=== PATIENT | female | born 2000 | race American Indian/Alaskan Native ===

== ENCOUNTER 2020-08-01 10:49 | Inpatient (IN) | payer BC, MEDICAID ==
--- NOTE | 2020-08-01 14:24 | Ultrasound Report ---
US OB BPP wo non-stress, US OB limited INDICATION / CLINICAL INFORMATION: decel in office. COMPARISON: None available. FINDINGS: BREATHING MOVEMENT = 2 GROSS BODY MOVEMENT = 0 TONE = 2 QUALITATIVE AMNIOTIC FLUID VOLUME = 2 TOTAL BIOPHYSICAL SCORE = 6/8 AMNIOTIC FLUID INDEX (cm) = 3.5; largest pocket of fluid measured 2.1 cm in the left upper quadrant. HEART RATE (beats per minute): 132 IMPRESSION: 1. biophysical profile = 07/23 . Only 2 episodes of body/limb movements identified within 30 tiffanie david. 2. Findings consistent with oligohydramnios with MAHSA measuring 3.5 cm. Signer Name: Tony Jackson MD Signed: 08/01/2020 2:19 PM Workstation Name: [id number]
[2020-08-01] MEDS ORDERED: CARBOPROST TROMETHAMINE 250 MCG/1 ML INJ IM PRN (14:43)
[2020-08-01] MEDS ORDERED: OXYTOCIN 10 UNIT/1 ML INJ IM PRN (14:43)
[2020-08-01] MEDS ORDERED: LOPERAMIDE 2 MG CAP PO PRN (14:43)
[2020-08-01] MEDS ORDERED: miSOPROStol 200 MCG TAB PR PRN (14:43)
[2020-08-01] MEDS ORDERED: METHYLERGONOVINE MALEATE 0.2 MG/ML VIAL IM PRN (14:43)
[2020-08-01] MEDS ORDERED: MINERAL OIL 30 ML ORAL LIQD PO PRN ×2 (14:43→19:23)
[2020-08-01] MEDS ORDERED: ePHEDrine SULFATE 50 MG/1 ML INJ IV PRN (14:43)
[2020-08-01] MEDS ORDERED: LIDOCAINE (2%) 20 MG/1 ML VIAL 20 ML MDV INFILTRATI ONE ×2 (14:43→19:23)
[2020-08-01] MEDS ORDERED: OXYTOCIN DRIP 30 UNITS/500 ML BAG IV SCH ×3 (15:00→20:00)
--- NOTE | 2020-08-01 15:14 | History and Physical Report ---
History of Present Illness Date of examination: 08/01/20 Date of admission: 08/01/20 14:43 Chief complaint: Induction of labor History of present illness: 20yo G1 at 40.1 weeks with non-reassuring testing-postdates for IOL. [place] 07/31/20 by [facility] consistent with second trimester US. 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 PNC at [facility], GBS negative per PNR Past History Past Medical History: no pertinent history Past Surgical History: no surgical history Family/Genetic History: other (see OB Problem list in HPI) Social history: no significant social history - Obstetrical History Expected Date of Delivery: 07/31/20 Actual Gestation: 40 Week(s) 1 Day(s) : 1 Medications and Allergies Allergies Allergy/AdvReac Type Severity Reaction Status Date / Time No Known Allergies Allergy Verified 08/01/20 11:16 Active Meds: Active Medications Carboprost Tromethamine (Carboprost Tromethamine 250 Mcg/1 Ml Inj) 250 mcg IM ONCE PRN PRN Reason: Uterine Bleeding Ephedrine Sulfate (Ephedrine Sulfate 50 Mg/1 Ml Inj) 10 mg IV Q2M PRN PRN Reason: Hypotension Oxytocin/Sodium Chloride (Pitocin/Ns 30 Unit/500ml) 30 units in 500 mls @ 2 mls/hr IV TITR HERON; Protocol Lactated Ringer's (Lactated Ringers) 1,000 mls @ 125 mls/hr IV DIRECT HERON Oxytocin/Sodium Chloride (Pitocin/Ns 30 Unit/500ml) 30 units in 500 mls @ 40 mls/hr IV TITR HERON; Protocol Loperamide HCl (Loperamide 2 Mg Cap) 2 mg PO ONCE PRN PRN Reason: give with Hemabate Methylergonovine Maleate (Methylergonovine Maleate 0.2 Mg/Ml Vial) 0.2 mg IM ONCE PRN PRN Reason: Uterine Bleeding Mineral Oil (Mineral Oil 30 Ml Oral Liqd) 30 ml PO QHS PRN PRN Reason: Constipation Misoprostol (Misoprostol 200 Mcg Tab) 800 mcg WA ONCE PRN PRN Reason: Uterine Bleeding Oxytocin (Oxytocin 10 Unit/1 Ml Inj) 10 unit IM ONCE PRN PRN Reason: Uterine Bleeding Terbutaline Sulfate (Terbutaline 1 Mg/1 Ml Inj) 0.25 mg SUB-Q ONCE PRN PRN Reason: Hyperstimulation/Hypertonicity Review of Systems All systems: negative - Vital Signs Vital signs: Vital Signs Pulse BP 85 125/88 08/01/20 11:16 08/01/20 11:16 Temp Pulse Resp BP Pulse Ox 97.9 F 109 H 20 135/91 98 08/01/20 11:17 08/01/20 15:08 08/01/20 11:17 08/01/20 14:50 08/01/20 15:08 - Physical Exam Breasts: Positive: deferred Cardiovascular: Regular rate Lungs: Positive: Clear to auscultation Abdomen: Positive: normal appearance, normal bowel sounds Genitourinary (Female): Positive: normal external genitalia, normal perenium Vagina: Positive: normal moisture Deep Tendon Reflex Grade: Normal +2 - Obstetrical FHR: category 1 Cervical Dilatation: 2 Cervical Effacement Percentage: 40 station: -3 Uterine Contraction Frequency (min): 4 Uterine Contraction Intensity: Moderate Results Result Diagrams: 08/01/20 14:32 All other labs normal. Assessment and Plan Admission Post Dates Non-Reassuring testing Plans: obtain PNR in AM GBS coverage as needed cervidil CFM Pain meds prn Maternal/ well being reassuring overall. Kalyani Abernathy MD
[2020-08-01 15:16] LABS: Hematocrit 33.9 % (30.3-42.9); Hemoglobin 10.6 gm/dl (10.1-14.3); Mean Corpuscular HGB Conc 31 % (30-34); Mean Corpuscular Volume 71 fl (79-97); Platelet Count 169 K/mm3 (140-440); Red Blood Count 4.76 M/mm3 (3.65-5.03); Red Cell Distribution Width 21.4 % (13.2-15.2)
[2020-08-01] MEDS ORDERED: NALOXONE 2 MG/2 ML INJ IV PRN (17:50)
--- NOTE | 2020-08-01 17:50 | Anesthesia Consultation ---
Anesthesia Consult and Med Hx Date of service: 08/01/20 - Airway Anesthetic Teeth Evaluation: Good ROM Head & Neck: Adequate Mental/Hyoid Distance: Adequate Mallampati Class: Class II Intubation Access Assessment: Good - Pulmonary Exam CTA: Yes - Cardiac Exam Cardiac Exam: RRR - Pre-Operative Health Status ASA Pre-Surgery Classification: ASA2 Proposed Anesthetic Plan: Epidural - Pulmonary Hx Smoking: No Hx Asthma: No Hx Respiratory Symptoms: No SOB: No COPD: No Home Oxygen Therapy: No Hx Pneumonia: No Hx Sleep Apnea: No - Cardiovascular System Hx Hypertension: No Hx Coronary Artery Disease: No Hx Heart Attack/AMI: No Hx Angina: No Hx Percutaneous Transluminal Coronary Angioplasty (PTCA): No Hx Cardia Arrhythmia: No Hx Pacemaker: No Hx Internal Defibrillator: No Hx Valvular Heart Disease: No Hx Heart Murmur: No Hx Peripheral Vascular Disease: No - Central Nervous System Hx Neuromuscular Disorder: No Hx Seizures: No CVA: No Hx Back Pain: Yes (History of Scoleosis and bulgind disc.) Hx Psychiatric Problems: No - Gastrointestinal Hx Ulcer: No Hx Gastroesophageal Reflux Disease: Yes - Endocrine Hx Renal Disease: No Hx End Stage Renal Disease: No Hx Cirrhosis: No Hx Liver Disease: No Hx Insulin Dependent Diabetes: No Hx Non-Insulin Dependent Diabetes: No Hx Thyroid Disease: No Hx Hypothyroidism: No Hx Hyperthyroidism: No - Hematic Hx Anemia: Yes Hx Sickle Cell Disease: No - Other Systems Hx Alcohol Use: No Hx Substance Use: No Hx Cancer: No Hx Obesity: Yes
[2020-08-01] MEDS ORDERED: fentaNYL-BUPIV 2 MCG/ML-0.125% 200 MCG/100 ML BAG EPIDURAL SCH (18:00)
[2020-08-01] MEDS ORDERED: AMPICILLIN/NS 2 GM/100 ML 2 GM/100 ML BAG IV ONE (19:23)
[2020-08-01] MEDS ORDERED: DINOPROSTONE 10 MG VAG SUPP VG ONE (19:23)
[2020-08-01] MEDS: LACTATED RINGERS 1,000 ML IV SCH (22:02)
[2020-08-02] MEDS: fentaNYL 100 MCG/2 ML INJ IV PRN ×2 (00:59→03:13)
[2020-08-02] MEDS: LACTATED RINGERS 1,000 ML IV SCH (04:20)
[2020-08-02] MEDS ORDERED: BUTORPHANOL 2 MG/1 ML INJ IV PRN (05:20)
--- NOTE | 2020-08-02 07:01 | Anesthesia Consultation ---
Anesthesia Consult and Med Hx Date of service: 08/02/20 - Airway Anesthetic Teeth Evaluation: Good ROM Head & Neck: Adequate Mental/Hyoid Distance: Adequate Mallampati Class: Class II Intubation Access Assessment: Good - Pulmonary Exam CTA: Yes - Cardiac Exam Cardiac Exam: RRR - Pre-Operative Health Status ASA Pre-Surgery Classification: ASA2 Proposed Anesthetic Plan: Epidural - Pulmonary Hx Smoking: No Hx Asthma: No Hx Respiratory Symptoms: No SOB: No COPD: No Home Oxygen Therapy: No Hx Pneumonia: No Hx Sleep Apnea: No - Cardiovascular System Hx Hypertension: No Hx Coronary Artery Disease: No Hx Heart Attack/AMI: No Hx Angina: No Hx Percutaneous Transluminal Coronary Angioplasty (PTCA): No Hx Cardia Arrhythmia: No Hx Pacemaker: No Hx Internal Defibrillator: No Hx Valvular Heart Disease: No Hx Heart Murmur: No Hx Peripheral Vascular Disease: No - Central Nervous System Hx Neuromuscular Disorder: No Hx Seizures: No CVA: No Hx Back Pain: No Hx Psychiatric Problems: No - Gastrointestinal Hx Ulcer: No Hx Gastroesophageal Reflux Disease: Yes - Endocrine Hx Renal Disease: No Hx End Stage Renal Disease: No Hx Cirrhosis: No Hx Liver Disease: No Hx Insulin Dependent Diabetes: No Hx Non-Insulin Dependent Diabetes: No Hx Thyroid Disease: No Hx Hypothyroidism: No Hx Hyperthyroidism: No - Hematic Hx Anemia: Yes Hx Sickle Cell Disease: No - Other Systems Hx Alcohol Use: No Hx Substance Use: No Hx Cancer: No Hx Obesity: Yes
--- NOTE | 2020-08-02 07:04 | Progress Note ---
Labor Epidural - Labor Epidural Start Time: 06:26 Stop Time: 06:47 Performed by:: MATIAS DODSON Procedure: Patient is requesting a laboring epidural for laboring pain. Patient IDed, H&P reviewed, all questions and concerns were answered, and consent was signed. Timeout was performed at bedside. Patient in sitting position. Sterile prep and drape was performed. [4] ml of 1% lidocaine skin wheal at L[3]- L [4]. 18- gauge Tuohy epidural needle was advanced to loss of resistance with air technique to 6 cm. Negative CSF negative blood via Tuohy needle. #27g Spinal needle clear, free flowing CSF, Pecedex 10 mcg. Epidural catheter advanced to [10] centimeters. [negative] Aspiration [negative] test dose. Sterile dressing applied. Patient tolerated procedure.
[2020-08-02] MEDS: ePHEDrine SULFATE 50 MG/1 ML INJ IV PRN ×2 (07:12→07:19)
[2020-08-02] MEDS: TERBUTALINE 1 MG/1 ML INJ SUB-Q PRN ×2 (07:57→09:38)
[2020-08-02] MEDS ORDERED: LIDOCAINE MPF (2%) 20 MG/1 ML VIAL 5 ML ONE (09:22)
[2020-08-02] MEDS ORDERED: BICITRA ORAL LIQD 30ML ONE (09:32)
[2020-08-02] MEDS ORDERED: FAMOTIDINE 20 MG/2 ML INJ IV ONE ×2 (09:33→09:59)
[2020-08-02] MEDS ORDERED: ceFAZolin/Water 2 GM/20 ML 2 GM/20 ML SYRINGE IV ONE (09:33)
[2020-08-02] MEDS ORDERED: METOCLOPRAMIDE 10 MG/2 ML INJ ONE (09:33)
[2020-08-02] MEDS ORDERED: TERBUTALINE 1 MG/1 ML INJ ONE (09:37)
[2020-08-02] MEDS ORDERED: BICITRA ORAL LIQD 30ML PO ONE (09:59)
[2020-08-02] MEDS ORDERED: METOCLOPRAMIDE 10 MG/2 ML INJ IV ONE (09:59)
[2020-08-02] MEDS ORDERED: ceFAZolin/Water 2 GM/20 ML 2 GM/20 ML SYRINGE IV NR (10:00)
[2020-08-02] MEDS ORDERED: OXYTOCIN DRIP 30 UNITS/500 ML BAG IV SCH ×2 (10:00→13:00)
[2020-08-02] MEDS ORDERED: LACTATED RINGERS 1,000 ML IV SCH (10:00)
[2020-08-02] MEDS ORDERED: ONDANSETRON 4 MG/2 ML INJ ONE ×2 (10:48)
[2020-08-02] MEDS ORDERED: OXYTOCIN 10 UNIT/1 ML INJ ONE (11:22)
[2020-08-02] MEDS ORDERED: miSOPROStol 200 MCG TAB ONE (11:25)
[2020-08-02] MEDS ORDERED: METHYLERGONOVINE MALEATE 0.2 MG/ML VIAL IM ONE (11:25)
[2020-08-02] MEDS ORDERED: CARBOPROST TROMETHAMINE 250 MCG/1 ML INJ IM ONE (11:25)
--- NOTE | 2020-08-02 12:07 | Procedure Note ---
OB Delivery Note - Delivery Date of Delivery: 08/02/20 Surgeon: ENID MOROCHO - Section Preop diagnosis: nonreassuring FHR tracing Postop diagnosis: same section procedure: section, primary low transverse Disposition: PACU Complications: uterine atony Narrative: Please see operative report. - Infant A at 1 minute: 8 at 5 minutes: 9 Infant Gender: Male (3553g (7lb 13oz) @ 11:19 am)
--- NOTE | 2020-08-02 12:08 | Operative Report ---
Operative Report Operative Report: Date of procedure: August 02, 2020 Preoperative diagnosis: 1) IUP at 40w2d 2) Oligohydramnios 3) Nonreassuring f etal status- repetitive late decelerations Postoperative diagnosis: Same 4) Occiput Posterior presentation Procedure: Primary low transverse section Surgeon: Lashaun King M.D. Anesthesia: Regional Findings: 1) Viable male , Apgars 8 and 9, weight 3553g (7 lb 13 oz) in cephalic presentation. Occiput posterior 2) Normal-appearing uterus ovaries and tubes Estimated blood loss: 788 mL IV fluids: 1300 mL Urine output: 75 mL, clear at the end of the procedure Drains: Buchanan to gravity Specimens: None Complications:None. Counts correct x 3 Disposition: Stable to PACU Indication for procedure: Pt is a 20y year old -[place] female primigravida who was admitted for induction of labor secondary to oligohydramnios. She progressed to 8 cm, but began having repetitive late decelerations after each contraction without further cervical change. The decision was made to proceed with delivery. Operation in detail: After the risks, benefits, alternatives and complications were explained to the patient she gave informed consent for the procedure. She was subsequently taken to the operating room where regional anesthesia was noted to be adequate. She was placed in the dorsal supine position with leftward tilt and prepped and draped in a normal sterile fashion. heart tones were noted prior to incision. A timeout was performed. A Pfannenstiel skin incision was made with the knife and carried down to the layer of the fascia with the Bovie. The fascia was incised in the midline and the fascial incision was extended bilaterally with the Bovie. The fascial incision was then stretched. The rectus muscles were then in the midline and partially transected for adequate visualization. The peritoneum was then entered bluntly. The peritoneal incision was extended with good visualization of the bladder. The peritoneal incision was then stretched. An Bandar retractor was placed. The bladder blade was then placed. The vesicouterine peritoneum was grasped with smooth pick ups and incised with Metzenbaum scissors. A bladder flap was then created digitally and the bladder blade was replaced. A transverse incision was made in the lower uterine segment with a knife and extended bilaterally with the bandage scissors. Amniotomy was performed with egress of clear fluid. head delivered with ease, followed by shoulders and body. bulb suctioned at delivery. Cord clamped and cut. handed to NICU staff in attendance. Cord blood was collected. The placenta was then delivered manually. The uterus was then exteriorized and cleared of all clots and debris. The hysterotomy was then reapproximated with 0 Monocryl in a running locked fashion. A second layer of the same suture was used in imbricating fashion. The hysterotomy was inspected and hemostasis was noted. The gutters were irrigated and cleared of all clots and debris. The hysterotomy was again inspected and noted to be hemostatic. Surgicel was placed over the hysterotomy. The uterus was placed back into the peritoneal cavity. The Bandar retractor was removed. The peritoneum was reapproximated with 2-0 Vicryl in a running fashion incorpora ting the rectus muscles. Surgicel was placed over the rectus muscles. The fascia was reapproximated with 0 Vicryl in a running fashion. The subcutaneous tissue was reapproximated with 3-0 Vicryl in a running fashion. The skin was reapproximated with 4-0 Vicryl in a subcuticular fashion. The incision was then covered with steri strips and a pressure dressing. The procedure was then ended. The patient tolerated the procedure well and was taken to the PACU in stable condition. All instrument, lap, and needle counts were correct 3.
--- NOTE | 2020-08-02 12:45 | Anesthesia Day of Surgery ---
Anesthesia Day of Surgery - Day of Surgery Patient Examined: Yes Patient H&P Reviewed: Yes Patient is NPO: Yes Beta Blockers: No Cardiac Clearance: No Pulmonary Clearance: No Hugh's Test: N/A
--- NOTE | 2020-08-02 12:48 | Progress Note ---
Spinal Anesthesia Block - Spinal Anesthesia Block Start Time: 10:40 Stop Time: 10:48 Performed by:: MATIAS DODSON Procedure: Epidural Catheter D/C'd, unable to flush catheter. Patient IDed, H&P reviewed, all questions and concerns were answered, and consent was signed. Timeout was performed at bedside. Patient in sitting position. Sterile prep and drape was performed. [3] ml of 1% lidocaine skin wheal at L[3]- L [4]. Needle introducer advanced. 25 gauge spinal needle advanced. Clear, free flowing CSF. negative blood, negative paresthesia. Spinal dose given. All needles removed. Patient tolerated procedure.
[2020-08-02] MEDS ORDERED: WITCH HAZEL/ GLYCERIN PAD TP PRN (12:50)
[2020-08-02] MEDS ORDERED: NALOXONE 0.4 MG/1 ML INJ IV PRN (12:50)
[2020-08-02] MEDS ORDERED: ONDANSETRON 4 MG/2 ML INJ IV PRN (12:50)
[2020-08-02] MEDS ORDERED: MORPHINE 4 MG/1 ML INJ IV PRN (12:50)
[2020-08-02] MEDS ORDERED: LANOLIN/ZINC/DIMETHICONE (LANSINOH) 7 GM TP PRN (12:50)
[2020-08-02] MEDS ORDERED: MAGNESIUM HYDROXIDE (MOM) ORAL LIQD UDC PO PRN (12:50)
[2020-08-02] MEDS ORDERED: SIMETHICONE 80 MG CHEW TAB PO PRN (12:50)
[2020-08-02] MEDS ORDERED: D5W/LACTATED RINGERS 1,000 ML IV SCH (13:00)
[2020-08-02] MEDS ORDERED: ceFAZolin/NS 1 GM/50 ML 1 GM/50 ML BAG IV SCH (13:00)
[2020-08-02] MEDS: MORPHINE 2 MG/1 ML INJ IV PRN ×2 (13:07→18:29)
[2020-08-02] MEDS: KETOROLAC 30 MG/1 ML INJ IV SCH ×2 (15:05→21:17)
--- NOTE | 2020-08-02 16:04 | Post Anesthesia Evaluation ---
- Post Anesthesia Evaluation Patient Participated: Yes Airway Patent: Yes Stable Respiratory Function: Yes Nausea/Vomiting: No Temp > 96.8F: Yes Pain Manageable: Yes Adequeate Hydration: Yes Anesthesia Complications: No Block Receding Appropriately: Yes Patient on Ventilator: No
[2020-08-02] MEDS ORDERED: LACTATED RINGERS 1000 ML IV SOLN IV SCH (17:53)
[2020-08-02] MEDS: oxyCODONE /ACETAMINOPHEN 5-325MG TAB PO PRN (23:55)
[2020-08-03 00:48] LABS: Hematocrit 27.5 % (30.3-42.9); Hemoglobin 8.4 gm/dl (10.1-14.3)
[2020-08-03] MEDS ORDERED: ceFAZolin/NS 1 GM/50 ML 1 GM/50 ML BAG IV SCH (01:30)
[2020-08-03] MEDS: KETOROLAC 30 MG/1 ML INJ IV SCH (03:59)
[2020-08-03] MEDS: FERROUS SULFATE 325 MG TAB PO SCH (09:57)
[2020-08-03] MEDS: oxyCODONE /ACETAMINOPHEN 5-325MG TAB PO PRN ×2 (09:57→15:53)
--- NOTE | 2020-08-03 11:12 | Progress Note ---
Assessment and Plan A: POD#1 s/p primary section at term Obesity P: Routine postoperative care Begin bowel regimen Subjective - Subjective Date of service: 08/03/20 Principal diagnosis: s/p primary at term Interval history: Pt with no unusual complaints Patient reports: appetite normal, voiding normally, pain well controlled, flatus (minimal ), ambulating normally, no bowel movement : doing well Objective - Vital Signs Latest vital signs: Vital Signs Temp Pulse Resp BP BP Pulse Ox 08/03/20 09:57 18 08/03/20 07:10 97.9 F 91 H 18 127/74 100 08/03/20 05:58 98.0 F 99 H 20 120/80 97 08/03/20 03:59 20 08/02/20 23:55 18 08/02/20 23:32 98.5 F 100 H 20 121/74 96 08/02/20 21:17 20 08/02/20 20:36 98.3 F 98 H 20 135/77 99 08/02/20 16:31 97.6 F 105 H 16 115/65 100 08/02/20 13:40 97.6 F 94 H 17 112/67 98 08/02/20 13:15 97.6 F 87 14 100/61 100 08/02/20 13:00 97.8 F 89 14 116/58 100 08/02/20 12:45 97.8 F 104 H 14 102/55 99 08/02/20 12:30 97.8 F 92 H 14 101/63 99 08/02/20 12:15 97.8 F 91 H 14 116/59 99 08/02/20 12:00 97.8 F 94 H 14 107/61 99 Intake and Output 08/02/20 08/03/20 08/03/20 22:59 06:59 14:59 Intake Total 240 480 Output Total 1900 Balance 240 -1420 Intake: Oral 240 Intake, Free Water 240 240 Output: Urine 1900 Indwelling Catheter 1200 Void 700 Other: Total, Intake Amount 240 Total, Output Amount 500 - Exam Breasts: Present: deferred Abdomen: Present: soft, distention (moderate ) Uterus: Present: fundal height at umbilicus Extremities: Present: edema (trace ) Incision: Present: dressed - Labs Labs: Abnormal lab results 08/03/20 Range/Units 00:21 Hgb 8.4 L (10.1-14.3) gm/dl Hct 27.5 L D (30.3-42.9) %
[2020-08-03] MEDS ORDERED: TETANUS,DIPH,PERTUSS(ACELL) VACCINE 0.5 ML SYRINGE IM ONE (12:28)
[2020-08-03] MEDS ORDERED: MEASLES, MUMPS & RUBELLA 12,500 UNIT/0.5 ML VACCINE SUB-Q ONE (12:28)
[2020-08-03] MEDS: IBUPROFEN 800 MG TAB PO PRN ×2 (12:33→18:11)
[2020-08-03] MEDS: LACTULOSE 20 GM/30 ML ORAL LIQD PO SCH ×2 (18:11→22:41)
[2020-08-04] MEDS: oxyCODONE /ACETAMINOPHEN 5-325MG TAB PO PRN ×2 (01:51→13:07)
[2020-08-04] MEDS: IBUPROFEN 800 MG TAB PO PRN (06:15)
[2020-08-04] MEDS: LACTULOSE 20 GM/30 ML ORAL LIQD PO SCH (06:25)
[2020-08-04 09:09] VITALS: BP 130/80
[2020-08-04] MEDS: FERROUS SULFATE 325 MG TAB PO SCH (09:14)
--- NOTE | 2020-08-04 11:47 | Progress Note ---
Assessment and Plan A: POD#2 s/p primary section at term Obesity P: Routine postoperative care Discharge today and follow up in 2 weeks in the office for an incision check Subjective - Subjective Date of service: 08/04/20 Principal diagnosis: s/p primary at term Interval history: Pt with no unusual complaints. She has had a couple bowel movements and asks to go home today. Patient reports: appetite normal, voiding normally, pain well controlled, flatus, bowel movement, ambulating normally [place]: doing well Objective - Vital Signs Latest vital signs: Vital Signs Temp Pulse Resp BP BP Pulse Ox 08/04/20 08:50 98.0 F 82 18 130/80 97 08/04/20 06:15 20 08/04/20 01:51 20 08/04/20 00:57 98.6 F 87 20 129/73 100 08/03/20 18:11 18 08/03/20 16:45 98.0 F 82 18 121/69 99 08/03/20 15:53 18 08/03/20 12:33 18 Intake and Output 08/03/20 08/04/20 08/04/20 22:59 06:59 14:59 Intake Total 360 240 Balance 360 240 Intake: Oral 240 Intake, Free Water 360 Other: Total, Intake Amount 240 # Voids Void 1 2 - Exam Breasts: Present: deferred Abdomen: Present: soft (mild ) Uterus: Present: fundal height at umbilicus Extremities: Present: normal Incision: Present: dressed
--- NOTE | 2020-08-04 11:47 | Discharge Summary ---
Providers - Providers Date of Admission: 08/01/20 19:23 Date of discharge: 08/04/20 Attending physician: GAIL GUERRERO 08/02/20 12:50 Consult to [employer] Consultant [CONS] Routine Reason For Exam: Primary care physician: GAIL GUERRERO Hospitalization Reason for admission: other (Oligohydramnios ) Delivery: Procedure: section, primary low transverse Procedure details: Please see operative report Episiotomy: none Laceration: none Incision: dressed Other procedures: none complications: none Discharge diagnosis: IUP at term delivered Tina baby: male Hospital course: This patient was admitted for induction of labor secondary to oligohydramnios at term. She went on to have a primary section which she tolerated well. The remainder of her postoperative course was uncomplicated and she met discharge criteria on postoperative day #2. She will follow-up in the office in 2 weeks for an incision check. Condition at discharge: Stable Disposition: - TO HOME OR SELFCARE - Discharge Diagnoses (1) Term of male Status: Acute (2) Obesity (BMI 30.0-34.9) Status: Acute (3) Anemia Status: Acute Qualifiers: Anemia type: unspecified type Qualified Code(s): D64.9 - Anemia, unspecified (4) Acute on chronic anemia Status: Acute Plan - Discharge Medications Prescriptions: Ferrous Sulfate [Feosol 325 MG tab] 325 mg PO BID #60 tablet Ibuprofen [Motrin] 800 mg PO Q8HR PRN #30 tablet PRN Reason: Pain, Moderate (4-6) oxyCODONE /ACETAMINOPHEN [Percocet 5/325] 1 tab PO Q6HR PRN #40 tablet PRN Reason: Pain - Provider Discharge Summary Activity: routine, no sex for 6 weeks, no heavy lifting 4 weeks, no strenuous e xercise Diet: routine Instructions: routine Additional instructions: [] Smoking cessation referral if applicable(refer to patient education folder for contact #) [] Refer to [facility] Booklet Call your doctor immediately for: * Fever > 100.5 * Heavy vaginal bleeding ( >1 pad per hour) * Severe persistent headache * Shortness of breath * Reddened, hot, painful area to leg or breast * Drainage or odor from incision. * Keep incision clean and dry at all times and follow doctor's instructions regarding bathing/showering - Follow up plan Follow up: JENNIFER KERN, [employer] [Advanced Practice Nurse] - 14 Days (Please schedule an incison check in 2 weeks Please schedule your son's circumcision before he is one month old. )
== END 2020-08-04 15:35 | disposition home or self-care (01) | DRG 787 ==
LOC: TRG 10:49 → APU 10:50 → LD 14:43 → TRG 14:43 → EDBD 19:23 → OBSVTOIN 19:23 → LD 19:23 → OB 08-02 14:27
PROVIDERS: ADMIT Obstetrics & Gynecology; ATTEND Obstetrics & Gynecology
PROC: 10D00Z1 Extraction of Products of Conception, Low, Open Approach (ICD-10-PCS; principal; 2020-08-02)
PROC: 3E0P7VZ Introduction of Hormone into Female Reproductive, Via Natural or Artificial Opening (ICD-10-PCS; 2020-08-02)
PROC: 3E0234Z Introduction of Serum, Toxoid and Vaccine into Muscle, Percutaneous Approach (ICD-10-PCS; 2020-08-03)
DX: O76 Abnormality in fetal heart rate and rhythm complicating labor and delivery (principal); O41.03X0 Oligohydramnios, third trimester, not applicable or unspecified; O48.0 Post-term pregnancy; Z37.0 Single live birth; Z3A.40 40 weeks gestation of pregnancy; O99.02 Anemia complicating childbirth; D56.3 Thalassemia minor; Z20.822 Contact with and (suspected) exposure to COVID-19; O99.214 Obesity complicating childbirth; E66.9 Obesity, unspecified; O99.62 Diseases of the digestive system complicating childbirth; K21.9 Gastro-esophageal reflux disease without esophagitis; O62.2 Other uterine inertia; Z23 Encounter for immunization; D64.9 Anemia, unspecified
CPT/HCPCS: 36415; 59200; 76815; 76819; 85014; 85018; 85027; 86592; 86850; 86900; 86901; 96360; G0378; J0690; J1885; J2270; J2405; J2590; J2765; J3010; J3105; J3490; J7120; U0003